=== PATIENT | male | born 1955 | race Caucasian/White ===

== ENCOUNTER → 2023-04-26 07:43 | Outpatient (REF) | payer BC, SELFPAY | LOC: RAD 07:43 | PROVIDERS: ATTENDING PHYSICIAN Surgery Vascular Surgery; FAMILY PHYSICIAN Family Medicine | DX: I71.40 Abdominal aortic aneurysm, without rupture, unspecified (principal) | CPT/HCPCS: 76770 ==

== ENCOUNTER → 2023-05-04 08:19 | Outpatient (REF) | payer BC, SELFPAY | LOC: RAD 08:19 | PROVIDERS: ATTENDING PHYSICIAN Surgery Vascular Surgery; FAMILY PHYSICIAN Family Medicine | DX: I71.40 Abdominal aortic aneurysm, without rupture, unspecified (principal) | CPT/HCPCS: 93922; 93925 ==

== ENCOUNTER → 2023-10-26 07:48 | Outpatient (REF) | payer BC, SELFPAY | LOC: RAD 07:48 | PROVIDERS: ATTENDING PHYSICIAN Registered Nurse; FAMILY PHYSICIAN Family Medicine | DX: I71.40 Abdominal aortic aneurysm, without rupture, unspecified (principal); I73.9 Peripheral vascular disease, unspecified | CPT/HCPCS: 76770 ==

== ENCOUNTER → 2024-01-11 12:03 | Outpatient (REF) | payer BC, SELFPAY | LOC: REG 12:03 | PROVIDERS: ATTENDING PHYSICIAN Nurse Practitioner Family; FAMILY PHYSICIAN Family Medicine | DX: R05.3 Chronic cough (principal) | CPT/HCPCS: 36415; 87070; 87205 ==

== ENCOUNTER → 2024-02-08 10:27 | Outpatient (REF) | payer BC, SELFPAY | LOC: RAD 10:27 | PROVIDERS: ATTENDING PHYSICIAN Internal Medicine Critical Care Medicine; FAMILY PHYSICIAN Family Medicine | DX: J41.1 Mucopurulent chronic bronchitis (principal) | CPT/HCPCS: 71250; 87070; 87116; 87205 ==

== ENCOUNTER 2024-05-23 06:27 | Day surgery (SDC) | payer BC, SELFPAY ==
[2024-05-23] VITALS (14 sets, daily range): BP systolic 35–147; BP diastolic 76–95; BMI 24.3
[2024-05-23] MEDS: NORMOSOL-R/PLASMALYTE-A 1000 IV ×2 (07:40→13:35)
[2024-05-23] MEDS: TYLENOL 1000 MG PO (07:53)
[2024-05-23] MEDS: NEURONTIN 300 MG PO (07:54)
--- NOTE | 2024-05-23 08:38 | W.SUR.PREOP ---
Pre-Operative Surgical Note
-
I have examined this patient prior to the performance of the scheduled procedure.
The patient's condition is unchanged from the time of the current History and
Physical and the patient is able to undergo the scheduled procedure.
--- NOTE | 2024-05-23 08:39 | HP.FOC2 ---
Focused History & Physical
Chief Complaint
HPI:
Chief Complaint: Incisional hernia
HPI / Indication for Planned Procedure: This is a 68-year-old male with a history of a robotic prostatectomy followed by an EVAR, and open AAA complicated by an incisional hernia here today for an open incisional hernia repair with mesh and possible
component separation.
Relevant Past Medical History: Negative
Relevant Social History: Negative
Relevant Family History: Negative
Relevant Past Surgical History: Positive for (Prostatectomy, open AAA)
Review of Systems
Review of Pertinent Systems: All Systems Negative
Medication
See Medication form for detailed medications: Yes
Medication List (including Herbals & OTC):
cholecalciferol (vitamin D3) 25 mcg (1,000 unit) tablet 1,000 units PO DAILY Supplement 05/04/16
amlodipine 5 mg tablet 5 mg PO DAILY Blood pressure 03/26/22
atorvastatin 40 mg tablet 40 mg PO HS 05/17/24
budesonide 1 dose inhalation DAILY 05/17/24
budesonide-formoterol HFA 160 mcg-4.5 mcg/actuation aerosol inhaler (Symbicort) 2 puff inhalation HS 05/17/24
fluticasone fur. 200 mcg-umeclid 62.5 mcg-vilant 25 mcg inhalat.powder (Trelegy Ellipta) 1 inh inhalation HS 05/17/24
montelukast 10 mg tablet 10 mg PO HS 05/17/24
rivaroxaban 10 mg tablet (Xarelto) 10 mg PO DAILY 05/17/24
Medications Reviewed: Yes
Allergies and Reactions
Patient has Allergies: No
Noted Allergies and Reactions:
Allergy/AdvReac Type Severity Reaction Status Date / Time
No Known Allergies Allergy Verified 05/23/24 07:47
Pertinent Physical Exam
All Other Systems: Negative
Head/Neck: Normal
Diagnosis / Assessment
This is a 68-year-old male with a history of a robotic prostatectomy followed by an EVAR, and open AAA complicated by an incisional hernia here today for an open incisional hernia repair with mesh and possible component separation.
Plan / Procedure
open incisional hernia repair with mesh and possible component separation.
Anesthesia/Sedation to be done by Anesthesia Provider: Yes
--- NOTE | 2024-05-23 12:53 | W.IMMPOSTOP ---
Surgical Immed Post Op Note
-
Primary Surgeon: Moncho Peralta MD
Assisting Surgeon: None
Pre-op Diagnosis: Incisional hernia open incisional hernia repair with
Post-op Diagnosis: Same
Procedure Performed:
1. Open incisional hernia repair with mesh
2. Myofascial advancement flap, right
3. Myofascial advancement flap, left
Anesthesia Type: General
Specimen / Cultures: None
Estimated Blood Loss: 23 cc
Complications: None
Operative Findings: 20 cm long x 5 cm wide incisional hernia. Retrorectus space developed, more medial advancement needed in the left and right upper quadrants so limited transversus abdominis releases were performed bilaterally to allow for
medialization and closure of the posterior rectus sheath. Care was taken to not violate diaphragm fibers which were kept anterior. Medially the central tendon of the diaphragm was identified. Inferiorly, the preperitoneal fat in the space of
Retzius was brought down. At the posterior rectus sheath was approximated using running 0 Vicryl suture. The space was then reinforced with a 30 long x 15 cm wide Bard soft mesh. The anterior rectus sheaths were approximated using running 0 PDS
suture. A 19 Greek round Dino drain was inserted through the left lower quadrant and placed in the retrorectus space.
POST OP PLAN:
Imaging: None
Labs: Routine AM
Diet: Sips and chips for now, will start clears tomorrow. Minimal adhesiolysis and bowel manipulation. Low risk for an ileus.
Analgesia: Tylenol 650mg q6 Luis F, Charley 5mg q6 PRN, Dilaudid 0.5mg q2h PRN
Neuro/vascular checks: q4h
AC/AP: Hold Therapeutic AC, Ok for DVT PPx
Activity: Ad Yecenia
Wound/Incisions/Drains: [Rou, CARA to bulb suction. Rowland to be removed on postoperative day 1
Abx: None
Dispo: RNF
[2024-05-23] MEDS: DILAUDID 0.5 MG IV (13:27)
[2024-05-23] MEDS: TYLENOL 650 MG PO ×3 (15:54→23:22)
[2024-05-23] MEDS: SINGULAIR 10 MG PO (17:11)
--- NOTE | 2024-05-23 18:45 | PTCARENOTE ---
Assumed care of pt at 1845. Assessed pt full head to toe. Midline incision with abd pads and abdominal binder in place. Rowland putting out yellow urine and to be removed POD#1. Care ongoing.
[2024-05-23] MEDS: LOVENOX 40 MG SC (20:02)
[2024-05-23] MEDS: NON-FORMULARY ITEM 1 UNIT INH (20:16)
[2024-05-23] MEDS: SYMBICORT 160/4.5 MCG INHALER 2 PUFF INH (22:08)
[2024-05-24 00:22] VITALS: BMI 25.3
[2024-05-24 03:00] VITALS: BP 125/85
[2024-05-24] MEDS: NORMOSOL-R/PLASMALYTE-A 1000 IV ×2 (04:26→16:54)
[2024-05-24] MEDS: TYLENOL 650 MG PO ×6 (04:30→23:59)
--- NOTE | 2024-05-24 04:40 | DOWNTIME ---
There was a [employer] Downtime on 05/24/2024 from 0100 to 05/25/2023 at 0420 . Downtime documentation of patient's care, including medication administrations, has been reconciled in the electronic record per guidelines. Refer to the
patient's paper chart under the miscellaneous tab to see printed paper medication records and downtime forms.
[2024-05-24 06:50] VITALS: BP 131/95
[2024-05-24] MEDS: PULMICORT 0.5 MG INH (07:03)
[2024-05-24 07:20] LABS: Hematocrit 42.5 % (39.0-52.0); Hemoglobin 14.9 g/dL (13.0-18.0); Mean Corp Hgb Conc. 35.1 g/dL (33.0-37.0); Mean Corpuscular Hgb 30.1 pg (27.0-31.0); Mean Corpuscular Volume 85.9 fL (80.0-94.0); Mean Platelet Volume 11.8 fL (7.4-10.4); Platelet Count 160 10^3/uL (130-400); Red Blood Cell Count 4.95 10^6/uL (4.70-6.10); Red Cell Dist. Width 13.4 % (11.5-14.5); White Blood Cell Count 20.1 10^3/uL (4.8-10.8)
[2024-05-24 08:00] LABS: Blood Urea Nitrogen 22 mg/dl (9-20); Calcium 8.7 mg/dl (8.4-10.2); Carbon Dioxide 29 mmol/L (22-30); Chloride 101 mmol/L (98-107); Estimated Creatinine Clearance 61 ml/min; Glucose 103 mg/dl (70-99); Potassium 3.9 mmol/L (3.5-5.1); Sodium 136 mmol/L (135-145); eGFR > 60.00
[2024-05-24] MEDS: NORVASC 5 MG PO (08:41)
[2024-05-24 11:00] VITALS: BP 133/90
--- NOTE | 2024-05-24 11:04 | CM ---
Initial assessment completed
Pt reports he lives with his in a 2 story home; 1 CHELA, FF set-up
Independent at baseline, no devices, retired, drives
DME - rolling walker
SNF - denies past hx
HH - [facility] in past
Has ride at d/c
PCP - Dr Hubbard at [facility]
Pharm - [facility]
Plan - anticipate home no needs
[2024-05-24 12:04] VITALS: BP 146/91; PULSE 92
--- NOTE | 2024-05-24 12:19 | W.PN.GS2 ---
Today's Communication / Plan
-
Adv to fulls
PT
Assessment / Plan
-
68M POD1 s/p open incisional hernia repair with B/L TAR
AFVSS, pain controlled, has not ambulated yet
Leukocytosis noted, likely reactive
Plan:
Adv to fulls
Ambulation / PT
IS
PRN pain control
DVT ppx
Cont quintana
Subjective Data
-
Date of Service: May 24, 2024
AFVSS, has not yet ambulated, denies n/v, endorses flatus, kaylene controlled with tylenol PO
Objective Data
-
Intake and Output
05/23/24 05/24/24 05/25/24
06:59 06:59 06:59
Intake Total 1390 / 1390
Output Total 1195 / 1195
Balance 195 / 195
Intake:
Oral fluids 240 / 240
IV fluids (Total) 1150 / 1150
normosol 250 / 250
Output:
Drain Output (Total) 120 / 120
Left Lower Abdomen Louis- 120 / 120
Hayden A
Urine, Quintana 1075 / 1075
Vital Signs
Temp Pulse Resp BP Pulse Ox
98.4 F 85 16 133/90 98
05/24/24 11:00 05/24/24 11:00 05/24/24 11:00 05/24/24 11:00 05/24/24 11:00
Lab Results
05/24/24 06:04
05/24/24 06:04
Calcium 8.7 mg/dl (8.4-10.2) 05/24/24 06:04
Physical Exam
-
Gen: NAD
Abd: soft, approp ttp, incision cdi, drain ss
Patient has a quintana catheter: Yes
Patient has a central line: No
[2024-05-24] MEDS: TORADOL 10 MG IV ×2 (14:18→20:56)
[2024-05-24 15:07] VITALS: BP 138/94
[2024-05-24] MEDS: LOVENOX 40 MG SC (16:52)
[2024-05-24] MEDS: SINGULAIR 10 MG PO (16:52)
[2024-05-24] MEDS: NON-FORMULARY ITEM 1 UNIT INH (17:05)
[2024-05-24] MEDS: SYMBICORT 160/4.5 MCG INHALER 2 PUFF INH (20:49)
[2024-05-24] MEDS: LIPITOR 40 MG PO (22:11)
[2024-05-24 23:00] VITALS: BP 134/93
[2024-05-25] MEDS: TORADOL 10 MG IV ×4 (02:31→21:00)
[2024-05-25] MEDS: TYLENOL 650 MG PO ×5 (04:52→20:26)
[2024-05-25 07:04] LABS: Hematocrit 40.6 % (39.0-52.0); Hemoglobin 14.1 g/dL (13.0-18.0); Mean Corp Hgb Conc. 34.7 g/dL (33.0-37.0); Mean Corpuscular Hgb 29.9 pg (27.0-31.0); Mean Corpuscular Volume 86.2 fL (80.0-94.0); Mean Platelet Volume 11.6 fL (7.4-10.4); Platelet Count 135 10^3/uL (130-400); Red Blood Cell Count 4.71 10^6/uL (4.70-6.10); Red Cell Dist. Width 13.6 % (11.5-14.5); White Blood Cell Count 13.1 10^3/uL (4.8-10.8)
[2024-05-25 07:26] LABS: Blood Urea Nitrogen 20 mg/dl (9-20); Calcium 8.2 mg/dl (8.4-10.2); Carbon Dioxide 29 mmol/L (22-30); Chloride 104 mmol/L (98-107); Estimated Creatinine Clearance 67 ml/min; Glucose 70 mg/dl (70-99); Potassium 3.6 mmol/L (3.5-5.1); Sodium 137 mmol/L (135-145); eGFR > 60.00
[2024-05-25 07:27] VITALS: BP 145/96
[2024-05-25] MEDS: PULMICORT 0.5 MG INH (07:46)
[2024-05-25] MEDS: NORVASC 5 MG PO (08:20)
[2024-05-25] MEDS: FLUSH (NSS) 1 FLUSH IV (08:20)
--- NOTE | 2024-05-25 08:46 | W.PN.GS2 ---
Today's Communication / Plan
-
Regular diet
Assessment / Plan
-
68M POD2 s/p open incisional hernia repair with B/L TAR
AFVSS, pain controlled.
Plan:
Adv to regular
MiraLAX added
Ambulation / PT
IS
PRN pain control
Anticipate starting Xarelto, removing drain and discharge tomorrow.
Time Spent
Total Time Spent with Patient (in minutes): 15
Subjective Data
-
Date of Service: May 25, 2024
Interval Events:
No acute events overnight. Slept well. Pain Controlled. Denies Nausea/Vomiting, +bowel function. Tolerating diet.
Objective Data
-
Intake and Output
05/24/24 05/25/24 05/26/24
06:59 06:59 06:59
Intake Total 1390 / 1390 4560 / 4560
Output Total 1195 / 1195 1810 / 1810
Balance 195 / 195 2750 / 2750
Intake:
Oral fluids 240 / 240 2760 / 2760
IV fluids (Total) 1150 / 1150 1800 / 1800
normosol 250 / 250
Output:
Drain Output (Total) 120 / 120 110 / 110
Left Lower Abdomen Louis- 120 / 120 110 / 110
Hayden A
Urine, Quintana 1075 / 1075
Urine, Voided 1700 / 1700
Other:
Number of approximated MODERATE 4
amounts of urine
Vital Signs
Temp Pulse Resp BP Pulse Ox
98.3 F 83 18 145/96 96
05/25/24 07:27 05/25/24 08:20 05/25/24 07:47 05/25/24 08:20 05/25/24 07:47
Lab Results
05/25/24 05:43
05/25/24 05:43
Calcium 8.2 mg/dl (8.4-10.2) L 05/25/24 05:43
Physical Exam
-
GENERAL/NEURO: Awake, Alert, no distress
CHEST: Unlabored breathing on RA
ABDOMEN: Soft, Non-Tender, Non-Distended, incision clean dry and intact. CARA with serosanguineous output.
Patient has a quintana catheter: No
Patient has a central line: No
[2024-05-25] MEDS: MIRALAX 17 GRAMS PO (09:28)
--- NOTE | 2024-05-25 11:51 | CM ---
Patient seen bedside, OOB in chair.
Patient denies home care needs.
Per patient possible dc tomorrow.
Patient has transportation home.
Plan: home no needs anticipated.
--- NOTE | 2024-05-25 12:08 | PTOTSP ---
The patient is mobilizing independently in the room and denies concerns regarding mobility upon return home. PT services are no longer warranted, will sign off. Discussed with RN.
[2024-05-25 14:57] VITALS: BP 134/87
[2024-05-25] MEDS: NON-FORMULARY ITEM 1 UNIT INH (17:13)
[2024-05-25] MEDS: SINGULAIR 10 MG PO (17:20)
[2024-05-25] MEDS: NON-FORMULARY ITEM INH (17:20)
[2024-05-25] MEDS: LOVENOX 40 MG SC (17:21)
[2024-05-25] MEDS: SYMBICORT 160/4.5 MCG INHALER 2 PUFF INH (19:30)
[2024-05-25] MEDS: LIPITOR 40 MG PO (22:52)
[2024-05-25 23:00] VITALS: BP 140/90
[2024-05-25] MEDS: TYLENOL PO (23:23)
[2024-05-26] MEDS: TYLENOL PO ×2 (00:03→03:38)
[2024-05-26] MEDS: PULMICORT 0.5 MG INH (07:35)
[2024-05-26 07:55] VITALS: BP 160/112
[2024-05-26] MEDS: TYLENOL 650 MG PO (07:58)
[2024-05-26] MEDS: NORVASC 5 MG PO (07:59)
[2024-05-26] MEDS: MIRALAX 17 GRAMS PO (07:59)
[2024-05-26 08:37] LABS: Hematocrit 46.7 % (39.0-52.0); Hemoglobin 16.1 g/dL (13.0-18.0); Mean Corp Hgb Conc. 34.5 g/dL (33.0-37.0); Mean Corpuscular Hgb 29.7 pg (27.0-31.0); Platelet Count 169 10^3/uL (130-400); Red Blood Cell Count 5.43 10^6/uL (4.70-6.10); Red Cell Dist. Width 13.6 % (11.5-14.5); White Blood Cell Count 13.3 10^3/uL (4.8-10.8)
[2024-05-26 08:50] LABS: Blood Urea Nitrogen 17 mg/dl (9-20); Calcium 9.4 mg/dl (8.4-10.2); Carbon Dioxide 28 mmol/L (22-30); Chloride 103 mmol/L (98-107); Estimated Creatinine Clearance 67 ml/min; Glucose 96 mg/dl (70-99); Potassium 3.8 mmol/L (3.5-5.1); Sodium 138 mmol/L (135-145); eGFR > 60.00
--- NOTE | 2024-05-26 08:52 | W.PN.GS2 ---
Today's Communication / Plan
-
dispo planning
Assessment / Plan
-
68M POD 3 s/p open incisional hernia repair with B/L TAR
AFVSS, BP/HR mildly elevated today prior to receiving analgesics. Suspect secondary to pain.
Labs stable
Plan:
Continue regular diet
MiraLAX daily
Will resume Xarelto today
Ambulation / PT
IS
PRN pain control
Given drain outputs, will keep in place upon discharge. CM consult for VNA.
Discharge today
Subjective Data
-
Date of Service: May 26, 2024
Patient seen and examined at bedside. Denies n/v. Tolerating diet. Was able to pass a BM which was formed. Pain is well controlled with Tylenol.
Objective Data
-
Intake and Output
05/25/24 05/26/24 05/27/24
06:59 06:59 06:59
Intake Total 4560 / 4560 1890 / 1890
Output Total 1810 / 1810 395 / 395
Balance 2750 / 2750 1495 / 1495
Intake:
Oral fluids 2760 / 2760 1890 / 1890
IV fluids (Total) 1800 / 1800
Output:
Drain Output (Total) 110 / 110 95 / 95
Left Lower Abdomen Louis- 110 / 110 95 / 95
Hayden A
Urine, Voided 1700 / 1700 300 / 300
Other:
Number of approximated MODERATE 4 2
amounts of urine
Vital Signs
Temp Pulse Resp BP Pulse Ox
97.8 F 102 16 160/112 99
05/25/24 23:00 05/26/24 07:59 05/26/24 07:35 05/26/24 07:59 05/26/24 07:35
Lab Results
05/26/24 08:04
05/26/24 08:04
Calcium 9.4 mg/dl (8.4-10.2) 05/26/24 08:04
Physical Exam
-
GENERAL/NEURO: Awake, Alert, no distress
CHEST: Unlabored breathing on RA
ABDOMEN: Soft, Non-Tender, Non-Distended, incision clean dry and intact. CARA with serosanguineous output.
Patient has a quintana catheter: No
Patient has a central line: No
[2024-05-26 09:40] VITALS: BP 131/98
--- NOTE | 2024-05-26 10:20 | W.DS.TRANS ---
DC Summary - Back Facer
-
Discharge Instructions:
Sleep Apnea Risk Intermediate
Discharge Diagnosis/Procedures Open incisional hernia repair
Diet As tolerated,Regular
Activity No strenuous activity
Additional Activity Do not lift over 15lbs for the next 4-6 weeks
Driving Restrictions Wait until off narcotics/comfortable twisting
Bathing Restrictions OK to Shower
Wound Care Ok to take off dressings for showering. Change
dressings daily and as needed.
Cover your incision with a gauze or ABD pad
while wearing binder. Wear the abdominal binder
with activity. Ok to remove for sleep.
Cover drain site with clean gauze and tape.
Instructions: How to care for a closed suction drain
Stand-Alone Forms:
Changes to Home Medications: No
Discharge Medications:
DC Medications w/original date entered in [facility]
cholecalciferol (vitamin D3) 25 mcg (1,000 unit) tablet 1,000 units PO DAILY Supplement 05/04/16
amlodipine 5 mg tablet 5 mg PO DAILY Blood pressure 03/26/22
atorvastatin 40 mg tablet 40 mg PO HS 05/17/24
budesonide 1 dose inhalation DAILY 05/17/24
budesonide-formoterol HFA 160 mcg-4.5 mcg/actuation aerosol inhaler (Symbicort) 2 puff inhalation HS 05/17/24
fluticasone fur. 200 mcg-umeclid 62.5 mcg-vilant 25 mcg inhalat.powder (Trelegy Ellipta) 1 inh inhalation HS 05/17/24
montelukast 10 mg tablet 10 mg PO HS 05/17/24
rivaroxaban 10 mg tablet (Xarelto) 10 mg PO DAILY 05/17/24
acetaminophen 325 mg tablet 650 mg (2 x 325 mg) PO Q4HPRN PRN mild pain #1 tab 05/26/24
ibuprofen 200 mg tablet 400 - 600 mg (2 - 3 x 200 mg) PO Q6HPRN PRN moderate pain #1 tab 05/26/24
oxycodone 5 mg tablet 5 mg PO Q4HPRN PRN breakthrough/severe pain #8 tabs 05/26/24
polyethylene glycol 3350 17 gram oral powder packet 17 grams PO DAILYPRN PRN constipation #1 packet 05/26/24
Home Medication Changes
Pending Results: No
--- NOTE | 2024-05-26 10:32 | CM ---
Pt for discharge today
CM consult for VN as pt has CARA. Discussed with pt - requesting [facility] - has had in past
Referral sent in [facility]. Called and LM with Kim from [facility]
Pt reports has ride home
Given IMM
Plan - home with [facility]
f - [phone]
[2024-05-26 12:13] VITALS: BP 128/77
--- NOTE | 2024-05-29 17:50 | OR.RPT ---
Addendum entered and electronically signed by Moncho Peralta MD 05/29/24 18:07:
Date of operation should read '05/23/2024'
Original Note:
Operative Report
Operative Report
Patient Name: Lamonte Muhammad
: 1955
Date of Operation: 05/29/2024
Preoperative Diagnosis: Incisional ventral hernia
Postoperative Diagnosis: Same
Procedure(s):
1. Open incisional hernia repair with mesh
2. Myofascial advancement flap, right
3. Myofascial advancement flap, left
Surgeon(s):
Dr. Peralta
Interior Design Instructor(s):
ANNALISA Jade
Anesthesia: General
Estimated Blood Loss: 23 cc
Urine Output: None
Drains/Lines/Implants: None
Specimens: None
Indication for surgery:
The patient has a incisional hernia from a prior abdominal surgery. After review of their therapeutic options, they elected to pursue an open repair
Operative Findings: 20 cm long x 5 cm wide incisional hernia. Retrorectus space developed, more medial advancement needed in the left and right upper quadrants so limited transversus abdominis releases were performed bilaterally to allow for
medialization and closure of the posterior rectus sheath. Care was taken to not violate diaphragm fibers which were kept anterior. Medially the central tendon of the diaphragm was identified. Inferiorly, the preperitoneal fat in the space of
Retzius was brought down. The posterior rectus sheath was approximated using running 0 Vicryl suture. The space was then reinforced with a 30 long x 15 cm wide Bard soft mesh. The anterior rectus sheaths were approximated using running 0 PDS
suture. A 19 Welsh round Dino drain was inserted through the left lower quadrant and placed in the retrorectus space.
Details of the operation:
After successful induction of general anesthesia and placement of an endotracheal tube, the patient was clipped, prepped and a preoperative bilateral JACKELIN block was performed by the anesthesiology team. The patient was then reprepped and draped in
the usual fashion. A team timeout was performed confirming administration of DVT prophylaxis, IV antibiotics and SCDs. The patient's prior midline incision was marked and excised. The abdomen was entered safely without any injury to the
underlying viscera. Thankfully there is very minimal adhesions, the lysis took less than 10 minutes. After identifying the hernia sac, we began to develop our preperitoneal plane. The posterior rectus sheath on both sides were identified and
incised. These were taken from the apex down to the pelvis and the retrorectus space was developed bilaterally. Inferiorly the retropubic space of Retzius was brought down and the 2 sides of our dissection were connected. Similarly at the caudal
end of our dissection we transition from the retrorectus space to the preperitoneal space to connect our dissection. There was some difficulty medializing the posterior rectus sheath in the upper quadrants so after identifying the neurovascular
bundles the posterior lamella of the internal oblique was incised exposing the transversus abdominis muscle bellies which were divided allowing more medial advancement. Care was taken to identify the muscles of the diaphragm more superiorly and
these were kept anterior so that no injury to the diaphragm would occur. Superiorly were able to get onto the central tendon to ensure wide mesh overlap as his incisional hernia extended essentially to the level of the xiphoid process. In the end
the defect was fairly thin but long about 20 cm long and 5 cm wide. The posterior rectus sheath was then closed using 0 Vicryl suture anchored at each apex and run towards the middle. The space was then reinforced with a Bard soft uncoated
polypropylene mesh that was cut to size and measured roughly 30 x 15 cm. No fixation was used. A 19 Welsh round Dino drain was inserted through the left lower quadrant stab incision and placed in the retrorectus space above the mesh. The
anterior rectus sheaths were then identified and closed using 0 PDS suture anchored at each apex and then run towards the middle. The subcutaneous tissue was then closed using running Vicryl suture followed by interrupted Vicryl sutures and running
4-0 suture for the skin. The skin was then closed with Dermabond. There were no intraoperative or immediate complications. The patient was awakened from general anesthesia and extubated and transferred to the recovery room, having tolerated the
procedure well.
I was the attending physician and performed the procedure with assistance from the [facility] above. I was present for all portions of the case, excluding skin closure
Moncho Peralta MD
== END 2024-05-26 12:21 | disposition home or self-care (01) ==
LOC: SDS 06:27
PROVIDERS: ATTENDING PHYSICIAN Surgery
DX: K43.2 Incisional hernia without obstruction or gangrene (principal)
CPT/HCPCS: 49595; 80048; 85027; 94640; 97162; C1781

== ENCOUNTER → 2024-11-16 07:54 | Outpatient (REF) | payer BC, SELFPAY | LOC: DHVS 07:54 | PROVIDERS: ATTENDING PHYSICIAN Surgery Vascular Surgery; FAMILY PHYSICIAN Family Medicine | DX: T82.868A Thrombosis due to vascular prosthetic devices, implants and grafts, initial encounter (principal); I71.40 Abdominal aortic aneurysm, without rupture, unspecified | CPT/HCPCS: 93922; 93925; 93978 ==